=== PATIENT | female | born 1980 | race Two or more races ===

== ENCOUNTER 2021-06-12 13:34 | Emergency (ER) | payer OTHER ==
[2021-06-12 13:57] VITALS: BP 140/87; TEMP 97; BMI 22.7
[2021-06-12] MEDS ORDERED: ACETAMINOPHEN 500 MG TABLET (FP) PO ONE (13:58)
[2021-06-12] MEDS ORDERED: LIDOCAINE 5% TOPICAL PATCH TP ONE (13:58)
[2021-06-12] MEDS ORDERED: KETOROLAC TROMETHAMINE 15 MG/ML VIAL IVPUSH ONE (13:58)
[2021-06-12] MEDS ORDERED: KETOROLAC TROMETHAMINE 30 MG/1 ML VIAL IM ONE (14:06)
[2021-06-12] MEDS ORDERED: ACETAMINOPHEN 325 MG TABLET (FP) ONE (14:07)
[2021-06-12] MEDS ORDERED: KETOROLAC TROMETHAMINE 30 MG/1 ML VIAL ONE (14:07)
[2021-06-12] MEDS ORDERED: LIDOCAINE 5% TOPICAL PATCH ONE (14:07)
[2021-06-12 14:26] VITALS: PULSE 64
[2021-06-12] MEDS ORDERED: LIDOCAINE PATCH REMOVAL MC SCH (22:00)
== END 2021-06-12 14:40 | disposition home or self-care (01) ==
LOC: JER 13:34
PROC: 3E023GC Introduction of Other Therapeutic Substance into Muscle, Percutaneous Approach (ICD-10-PCS; principal; 2021-06-12)
DX: S40.011A Contusion of right shoulder, initial encounter (principal); V49.40XA Driver injured in collision with unspecified motor vehicles in traffic accident, initial encounter
CPT/HCPCS: 99284-25